=== PATIENT | male | born 1990 | race Caucasian/White ===

== ENCOUNTER 2016-11-13 14:19 | Emergency (ER) | payer SELFPAY ==
[~2016-11-13 14:19] MED LIST: IBUP800 PO
[2016-11-13 14:28] VITALS: BP 134/67; PULSE 89; RESP 20; TEMP 98.8; O2SAT 98
--- NOTE | 2016-11-13 15:18 | PD ---
HPI Chief Complaint: Oral / Dental Pain or Problem Time Seen by Provider: 15:12 Travel History International Travel<30 days: No Contact w/Intl Traveler<30days: No Traveled to known affect area: No History of Present Illness HPI 26-year-old male presents to the emergency room for evaluation of right-sided jaw pain and swelling as well as possible infected wounds to his right dorsal wrist and left third and fourth fingers. Patient states dental infection started today and is only painful when he pushes on it. Denies fever, chills, nausea, vomiting. He is in the process of having his teeth fixed and had 8 teeth pulled a few months ago but has been unable to return to the dentist because of financial reasons. 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 States he first got caught on the arm 5 days ago but noticed worsening of symptoms 3 days ago and drainage after getting out of the shower today. Unknown last tetanus. PFSH Past Medical History Diminished Hearing: No Immunizations Current: Yes Migraines: Yes Social History Alcohol Use: No Tobacco Use: Yes (1/2PPD) Substance Use: Yes (MARIJUANA) Allergies-Medications (Allergen,Severity, Reaction): Coded Allergies: No Known Allergies (Verified , 11/13/16) Reported Meds & Prescriptions Reported Meds & Active Scripts Active No Active Prescriptions or Reported Medications Review of Systems Except as stated in HPI: all other systems reviewed are Neg Physical Exam Narrative GENERAL: Well-nourished, well-developed male in no acute distress. Afebrile. Ambulatory. SKIN: Focused skin assessment warm/dry. There is a 2 cm line of erythema over a healing wound without spontaneous, purulent drainage on the right dorsal wrist. 2+ Radial pulse. Full range of motion of the right upper extremity. No lymphangitis. There is a puncture wound to the left fourth finger over the distal, dorsal phalanx with surrounding erythema that is tender to palpation. No drainage. No obvious abscess. HEAD: Normocephalic. EYES: No scleral icterus. No injection or drainage. NECK: Supple, trachea midline. No JVD or lymphadenopathy. DENTAL: Severe decay throughout. No malocclusion. Mild tenderness to palpation of tooth #29. No surrounding erythema, obvious abscess, or drainage. There is no submental, submandibular, or buccal induration. Mild right-sided buccal edema. CARDIOVASCULAR: Regular rate and rhythm without murmurs, gallops, or rubs. RESPIRATORY: Breath sounds equal bilaterally. No accessory muscle use. Data Data Last Documented VS Vital Signs Date Time Temp Pulse Resp B/P Pulse Ox O2 Delivery O2 Flow Rate FiO2 11/13/16 14:28 98.8 89 20 134/67 98 MDM Medical Decision Making Medical Screen Exam Complete: Yes Emergency Medical Condition: Yes Medical Record Reviewed: Yes Differential Diagnosis Dentalgia, gingivitis, dental decay, cellulitis Narrative Course 26-year-old male presents to the emergency room for evaluation of right-sided facial swelling in right sided wound infection. Facial swelling started today. Wound infection started 3 days ago. No systemic signs of infection. Vital signs stable. No evidence of Albaro's. Patient will be discharged with clindamycin to cover for both dental abscess and possible cellulitis. Tetanus was updated. Told to follow up with her primary care physician and dentist or return for worsening symptoms. He understands and agrees to plan. Diagnosis Primary Impression: Dental abscess Additional Impression: Cellulitis Qualified Code: L03.113 - Cellulitis of right upper extremity Referrals: Primary Care Physician Patient Instructions: Dental Abscess (ED), General Instructions Additional Instructions: Rest and drink plenty of fluids. Clindamycin as directed, until gone. Follow-up with a dentist. Return to the emergency room for worsening symptoms. Scripts No Active Prescriptions or Reported Meds Disposition: 01 DISCHARGE HOME Condition: Stable Shama Gongora Nov 13, 2016 15:18
[2016-11-13] MEDS ORDERED: CLIN1CAP6 PO (15:19)
[2016-11-13] MEDS ORDERED: TETANUS/DIPHTHERIA TOXOID ADULT 0.5 ML VIAL IM ONE (15:30)
== END 2016-11-13 16:06 | disposition home or self-care (01) ==
LOC: PHED 14:19
DX: K04.7 Periapical abscess without sinus (principal); L03.113 Cellulitis of right upper limb; F17.200 Nicotine dependence, unspecified, uncomplicated; Z23 Encounter for immunization; Z86.69 Personal history of other diseases of the nervous system and sense organs
CPT/HCPCS: 90471; 90714

== ENCOUNTER 2017-08-24 18:36 | Emergency (ER) | payer SELFPAY ==
[~2017-08-24] VITALS: Ht 180.3 cm; Wt 57.0 kg
[~2017-08-24 18:36] MED LIST changes: +CLIN300C5 PO; -IBUP800 PO
[2017-08-24 18:44] VITALS: BP 130/90; PULSE 72; RESP 16; TEMP 98; O2SAT 99
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
== END 2017-08-24 19:25 | disposition home or self-care (01) ==
LOC: NEPK 18:36
DX: S40.012A Contusion of left shoulder, initial encounter (principal); Y00.XXXA Assault by blunt object, initial encounter; Y93.01 Activity, walking, marching and hiking; Y92.524 Gas station as the place of occurrence of the external cause
CPT/HCPCS: 99282

== ENCOUNTER 2017-10-11 11:38 | Emergency (ER) | payer SELFPAY ==
[~2017-10-11] VITALS: Ht 180.3 cm; Wt 54.5 kg
[2017-10-11 11:45] VITALS: BP 135/60; PULSE 67; RESP 18; TEMP 97.8; O2SAT 100
[2017-10-11] MEDS ORDERED: LIDOCAINE HCL 1% 30 ML VIAL INFIL ONE (14:00)
[2017-10-11] MEDS ORDERED: TETANUS/DIPHTHERIA TOXOID ADULT 0.5 ML VIAL IM ONE (14:00)
--- NOTE | 2017-10-11 14:41 | PD ---
HPI Chief Complaint: Laceration/Skin Injury Time Seen by Provider: 13:48 Travel History International Travel<30 days: No Contact w/Intl Traveler<30days: No Traveled to known affect area: No History of Present Illness HPI 37-year-old [id number] male presents the ED for evaluation of laceration of the second digit of the left hand. Sustained when the patient was using a brand-new blade and a jukebox routeman as before arrival. Patient states tetanus immunization is up-to-date. He endorses some numbness of the finger. Pain is rated 6/10, exacerbated by touch or range of motion. Denies weakness or limitations to range of motion. No treatment attempted before arrival. PFSH Past Medical History Diminished Hearing: No Immunizations Current: Yes Migraines: Yes Social History Alcohol Use: No Tobacco Use: Yes (1/2PPD) Substance Use: Yes (MARIJUANA) Allergies-Medications (Allergen,Severity, Reaction): Coded Allergies: No Known Allergies (Verified Adverse Reaction, Unknown, 10/11/17) Reported Meds & Prescriptions Reported Meds & Active Scripts Active Clindamycin (Clindamycin HCl) 300 Mg Cap 300 Mg PO Q6H 10 Days Review of Systems Except as stated in HPI: all other systems reviewed are Neg Physical Exam Narrative GENERAL: Well-nourished, well-developed white male no acute distress. SKIN: Focused skin assessment warm/dry. 1.5 cm laceration radial aspect second finger left hand. HEAD: Normocephalic. EYES: No scleral icterus. No injection or drainage. NECK: Supple, trachea midline. No JVD or lymphadenopathy. CARDIOVASCULAR: Regular rate and rhythm without murmurs, gallops, or rubs. RESPIRATORY: Breath sounds equal bilaterally. No accessory muscle use. GASTROINTESTINAL: Abdomen soft, non-tender, nondistended. MUSCULOSKELETAL: No cyanosis, or edema. FOCUSED LEFT UPPER EXTREMITY EXAM: 2+ DP pulse. Cap refill less than 2 seconds. Patient is able to flex and extend the affected finger. Sensation intact to light touch distally. BACK: Nontender without obvious deformity. No CVA tenderness. Data Data Last Documented VS Vital Signs Date Time Temp Pulse Resp B/P (MAP) Pulse Ox O2 Delivery O2 Flow Rate FiO2 10/11/17 11:45 97.8 67 18 135/60 (85) 100 Orders Orders Lidocaine 1% Inj (Xylocaine 1% Inj) (10/11/17 14:00) Tetanus/Diphtheria Tox Adult (Tetanus/Di (10/11/17 14:00) Ed Discharge Order (10/11/17 15:02) [facility] Medical Decision Making Medical Screen Exam Complete: Yes Emergency Medical Condition: Yes Differential Diagnosis Laceration versus abrasion versus tendinous injury versus need for tetanus immunization versus other Narrative Course 27-year-old male presents the ED for evaluation of laceration of left index finger with a brand-new jukebox routeman blade just before arrival. I reviewed the patient's record, tetanus immunization is up-to-date. On exam there is a 2 cm laceration on the radial aspect of the left index finger. The wound was evaluated and a blood free field. Patient retains full, active, painless R OM of the extremity. Cap refill is less than 2 seconds. No active bleeding. Laceration repair was performed. Please see my procedure note for details. Patient was given detailed wound care instructions. He is stable and discharged home. Procedures Procedure Narrative LACERATION LOCATION: Medial aspect left index finger LENGTH: 2 cm NUMBER OF STITCHES/RUBEN: 5 REPAIR: The area of the laceration was prepped with Betadine and sterilely draped. Digital block was performed with 1% lidocaine. The wound was copiously irrigated and explored without evidence of foreign body, tendon injury or neurovascular injury. The wound was closed using 6-0 Prolene. This was a single layer repair. A sterile dressing was applied. The patient was advised to keep the dressing clean and dry. Patient tolerated the procedure well. Diagnosis Primary Impression: Laceration of finger of left hand Qualified Codes: S61.211A - Laceration without foreign body of left index finger without damage to nail, initial encounter Referrals: Hand Surgeon Additional Instructions: Rest, hydrate. Do not change the dressing for 2 days. You may shower normally. Do not submerge the wound. After bathing pat of wound dry. Allow the wound to air dry for 10-15 minutes. Apply a thin layer of antibiotic ointment and a clean, dry dressing. Utilize [id number] pain medications, as described on the label, as needed. Monitor for signs of infection as discussed. Avoid sharp flexion of the finger as this may cause the sutures to burst. Suture removal in 7-10 days. Follow-up with your primary care provider. Return to the ED for any urgent or emergent medical condition. Disposition: 01 DISCHARGE HOME Condition: Stable Charley Vanegas Oct 11, 2017 14:41
== END 2017-10-11 15:27 | disposition home or self-care (01) ==
LOC: NEPD 11:38
DX: S61.211A Laceration without foreign body of left index finger without damage to nail, initial encounter (principal); F17.210 Nicotine dependence, cigarettes, uncomplicated; W26.8XXA Contact with other sharp object(s), not elsewhere classified, initial encounter; Z79.899 Other long term (current) drug therapy
CPT/HCPCS: 12001